=== PATIENT | female | born 1965 | race Caucasian/White ===

== ENCOUNTER → 2016-09-06 | Outpatient (CLI) | payer BC ==
[~2016-09-06] MED LIST: LANS30CA41 PO
[2016-09-06 14:42] LABS: BASO % 0.3 %; BASO ABS # 0.02 K/uL (0-0.2); COMPLETE YES; EOS % 1.1 %; HEMATOCRIT 37.8 % (37-47); IG% 0.3 %; LYMPH % 21.6 %; LYMPH ABS # 1.57 K/uL (1.2-3.4); MEAN CELL VOLUME 90.4 fL (80-100); MEAN CORPUSCULAR HEMOGLOBIN 30.6 pg (25-34); MEAN CORPUSCULAR HGB CONC 33.9 g/dl (32-36); MEAN PLATELET VOLUME 10.7 fL (7.4-10.4); MONO % 4.9 %; NEUT % 71.8 %; PLATELET COUNT 235 K/uL (130-400); RED BLOOD COUNT 4.18 M/uL (4.2-5.4); WHITE BLOOD COUNT 7.28 K/uL (4.8-10.8)
[2016-09-06 15:16] LABS: ALT/SGPT 22 U/L (12-78); AST/SGOT 15 U/L (15-37); BLOOD UREA NITROGEN 18 mg/dl (7-18); BUN/CREATININE RATIO 18.1 (10-20); CALCIUM 9.1 mg/dl (8.5-10.1); CARBON DIOXIDE 29 mmol/L (21-32); GLUCOSE 65 mg/dl (70-99)
[2016-09-06 15:51] LABS: ALB/GLOB RATIO 1.2 (0.9-2); ALKALINE PHOSPHATASE 73 U/L (45-117); CHLORIDE 107 mmol/L (98-107); POTASSIUM 3.6 mmol/L (3.5-5.1); SODIUM 144 mmol/L (136-145)
== END | disposition home or self-care (01) ==
LOC: C.CPL 12:14
PROVIDERS: ATTEND Surgery
DX: Z01.810 Encounter for preprocedural cardiovascular examination (principal)

== ENCOUNTER 2018-12-17 06:16 | Inpatient (IN) ==
--- NOTE | 2018-12-16 12:00 | History and Physical Report ---
DATE OF ADMISSION: 12/17/2018 HISTORY OF PRESENT ILLNESS: She has a spondylolisthesis significant at L4-L5 and she is here for a PLIF procedure at L4-L5 lumbar spine. She has back pain, lower extremity difficulty, paresthesias and occasional bladder issues. PAST MEDICAL HISTORY: Positive for mitral valve prolapse, asthma. No hypertension, heart disease, or diabetes. PAST SURGICAL HISTORY: x2, meniscus repair, hysterectomy, shoulder surgery. ALLERGIES: Negative. SOCIAL HISTORY: . No alcohol. Moderately active. FAMILY HISTORY: Pulmonary emboli. REVIEW OF SYSTEMS: Twelve-system review taken today. No fevers, sweats, or chills. Ear, nose and throat negative. Denies chest pain or palpitations. No wheezing. No nausea or vomiting. She has musculoskeletal joint pain, weakness, muscle pain. MEDICATION: Prevacid. PHYSICAL EXAMINATION: GENERAL: She is 5 feet 10 inches. She is 225 pounds. She is miserable, poorly functional, poorly standing. VITAL SIGNS: Blood pressure 130/80, pulse 80. Afebrile. HEENT: Pupils react to light and accommodation. Ear, nose and throat clear. CARDIAC: Normal S1, S2. No S3. LUNGS: Clear to auscultation. No rales, rhonchi, or wheezing. ABDOMEN: Soft, nontender. MUSCULOSKELETAL: She has pain with flexion and extension of the spine. Weakness with dorsiflexion of the foot. Skin is clean. No upper motor neuron issues. X-RAYS: Demonstrate a grade 1 spondylolisthesis slippage forward of the fourth vertebrae on the fifth and slightly tilting forward of fourth on fifth. IMPRESSION: Profound stenosis and spondylolisthesis L4-L5. PLAN: Includes a PLIF procedure, posterior lumbar interbody fusion L4-L5 lumbar spine. [facility]
[2018-12-17] MEDS ORDERED: SODIUM CHLORIDE 0.9% 1000ML 1,000 ML IV ONE (06:37)
[2018-12-17] MEDS ORDERED: ONDANSETRON INJ 2 MG/ML 2 ML VIAL IV STA (06:37)
[2018-12-17] MEDS ORDERED: MoRPHine SULFATE 4 MG/ML 1 ML CARP\\VIAL IV STA (06:37)
[2018-12-17 07:10] LABS: Basophils # (auto) 0.03 K/uL (0-0.2); Basophils % (auto) 0.6 %; Eosinophils # (auto) 0.12 K/uL (0-0.5); Eosinophils % (auto) 2.2 %; Hematocrit (blood only) 38.9 % (37-47); Hemoglobin 13.5 g/dL (12.0-16.0); Immature Granulocytes # (auto) 0.01 K/uL (0.00-0.02); Immature Granulocytes % (auto) 0.2 %; Lymphocytes # (auto) 1.57 K/uL (1.2-3.4); Lymphocytes % (auto) 28.9 %; Mean Corpuscular Hemoglobin 30.1 pg (25-34); Mean Corpuscular Hgb Conc 34.7 g/dL (32-36); Mean Corpuscular Volume 86.6 fL (80-100); Mean Platelet Volume 10.1 fL (7.4-10.4); Monocytes # (auto) 0.34 K/uL (0.11-0.59); Monocytes % (auto) 6.3 %; Neutrophils # (auto) 3.37 K/uL (1.4-6.5); Neutrophils % (auto) 61.8 %; Platelet Count 212 K/uL (130-400); RDW Coefficient of Variation 12.7 % (11.5-14.5); RDW Standard Deviation 40.7 fL (36.4-46.3); Red Blood Count 4.49 M/uL (4.2-5.4); White Blood Count 5.44 K/uL (4.8-10.8)
[2018-12-17 07:26] LABS: Albumin Level 3.8 gm/dl (3.4-5.0); BUN Creatinine Ratio 16.1 (10-20); Calcium 9.6 mg/dl (8.5-10.1); Creatinine Clr Calc Pharmacy 89.9 ml/min; Est GFR (African American) 80.3; Est GFR (Non-African American) 69.3; Potassium 3.9 mmol/L (3.5-5.1)
[2018-12-17 07:29] LABS: Albumin Globulin Ratio 1.3 (0.9-2); Bilirubin,Total 0.8 mg/dl (0.2-1); Globulin 2.9 gm/dl (2.5-4.0); Total Protein 6.7 gm/dl (6.4-8.2)
--- NOTE | 2018-12-17 07:46 | Emergency Department Note ---
Entered by Kendal Frederick acting as a scribe for Iron Subramanian DO History of Present Illness General Chief complaint: Back Injury/Pain Stated complaint: BACK PAIN Source: patient Mode of arrival: EMS History of Present Illness Provider complaint: Back pain Onset (ago): week(s) 1 Location: lower extremity and right Radiation: extremity (legs) Pain Consistency: + constant Maximum Pain Intensity: 10 Quality: + other (numbness) Exacerbated By: + movement Associated symptoms: + denies other symptoms The patient is a 53 y/o female with a history of obesity who presents to the emergency department for evaluation of constant lower extremity numbness and weakness that began a week ago. The patient states that she has compressed disks in her back that have been causing lower extremity weakness, numbness and incontinence a few times a day. She notes that the numbness goes down the back of her legs mostly on the right but also the left. The patient reports that she has been following with Dr. Gomez since June and he informed her to come to the emergency department this morning so he could see her. She denies any other symptoms. Home Medications Home Medications Medication Instructions Recorded Confirmed Type omeprazole 40 mg PO QAM 12/02/18 12/17/18 History hydrocodone-acetaminophen 1 tab PO Q6 PRN 12/17/18 12/17/18 History Allergies Allergy/AdvReac Type Severity Reaction Status Date / Time HARDWARE (CLIPS/PINS) Allergy Intermediate BODY Uncoded 12/17/18 08:58 "REJECTED" HARDWARE/NEEDED REMOVED Past Med/Surg History Medical History Asthma Elevated antinuclear antibody (MINDY) level GERD (gastroesophageal reflux disease) History of endometriosis History of ovarian cyst History of uterine fibroid Mitral valve prolapse Obesity Osteoarthritis Surgical History H/O shoulder surgery LEFT History of ankle surgery LEFT X 2 History of section X2 History of cholecystectomy History of colonoscopy History of esophagogastroduodenoscopy (EGD) History of hysterectomy with unilateral oophorectomy History of left knee surgery Left knee arthroscopy: 07/09/18: LMA#4 at [facility] Nausea and vomiting after administration of anesthetic agent Family History Mother Family history of diabetes mellitus Social History Preferred Language: Thai Communication Ability: Effective Stitchdown Thread Laster Required: No Beliefs That Will Affect Care: None Current Living Situation: Spouse Feels Safe at Home: Yes Smoking Status: Never smoker Second Hand Exposure: Yes ( A CHILD) ; Hx Alcohol Use: No Hx Substance Use: No Review of Systems See HPI for pertinent positives & negatives. and A total of 10 systems reviewed and were otherwise negative Physical Exam Vital Signs Vital Signs - 24 hr 12/17/18 06:19 12/17/18 07:13 12/17/18 08:07 Temperature 36.7 C Temperature Source Oral Sepsis Recent Fever Within 48 Hours No Sepsis Action Taken by Nursing No Action Required Pulse Rate 73 Pulse Rate [Apical] Pulse Rate [Finger] 74 Pulse Rhythm Regular Pulse Rhythm [Apical] Pulse Rhythm [Finger] Pulse Strength Normal Pulse Strength [Finger] Respiratory Rate 20 Respiratory Effort / Characteristics Non-Labored Spontaneous Respiratory Depth Normal Normal Respiratory Pattern Regular Blood Pressure 146/86 H Blood Pressure [Left Arm] Blood Pressure [Right Arm] 124/78 Blood Pressure Mean 106 Blood Pressure Mean [Left Arm] Blood Pressure Mean [Right Arm] 93 Blood Pressure Position Sitting Blood Pressure Position [Left Arm] Blood Pressure Position [Right Arm] Pulse Oximetry 99 95 96 Oxygen Delivery Method Room Air Room Air Room Air Oxygen Flow Rate 12/17/18 08:32 12/17/18 09:00 12/17/18 12:51 Temperature 36.8 C 36.0 C L Temperature Source Oral Temporal Artery Scan Sepsis Recent Fever Within 48 Hours Sepsis Action Taken by Nursing Pulse Rate Pulse Rate [Apical] 64 Pulse Rate [Finger] 64 Pulse Rhythm Pulse Rhythm [Apical] Regular Pulse Rhythm [Finger] Regular Pulse Strength Pulse Strength [Finger] Normal Respiratory Rate 20 13 Respiratory Effort / Characteristics Non-Labored Spontaneous Non-Labored Spontaneous Respiratory Depth Normal Normal Respiratory Pattern Regular Regular Blood Pressure Blood Pressure [Left Arm] 116/79 Blood Pressure [Right Arm] 144/85 H Blood Pressure Mean Blood Pressure Mean [Left Arm] 91 Blood Pressure Mean [Right Arm] 104 Blood Pressure Position Blood Pressure Position [Left Arm] Lying Blood Pressure Position [Right Arm] Sitting Pulse Oximetry 99 100 Oxygen Delivery Method Room Air Room Air Oxymask Oxygen Flow Rate 12/17/18 13:00 12/17/18 13:10 12/17/18 13:20 Temperature 36.3 C L Temperature Source Temporal Artery Scan Sepsis Recent Fever Within 48 Hours Sepsis Action Taken by Nursing Pulse Rate Pulse Rate [Apical] 64 62 62 Pulse Rate [Finger] Pulse Rhythm Pulse Rhythm [Apical] Regular Regular Regular Pulse Rhythm [Finger] Pulse Strength Pulse Strength [Finger] Respiratory Rate 14 14 14 Respiratory Effort / Characteristics Non-Labored Spontaneous Non-Labored Spontaneous Non-Labored Spontaneous Respiratory Depth Normal Normal Normal Respiratory Pattern Regular Regular Regular Blood Pressure Blood Pressure [Left Arm] 107/64 107/61 104/65 Blood Pressure [Right Arm] Blood Pressure Mean Blood Pressure Mean [Left Arm] 78 76 78 Blood Pressure Mean [Right Arm] Blood Pressure Position Blood Pressure Position [Left Arm] Lying Lying Lying Blood Pressure Position [Right Arm] Pulse Oximetry 100 97 100 Oxygen Delivery Method Oxymask Room Air Room Air Oxygen Flow Rate 5 GENERAL: Laying in bed, obese, disheveled, in gown. EYE EXAM: normal conjunctiva. OROPHARYNX: no exudate, no erythema, lips, buccal mucosa, and tongue normal and mucous membranes are moist NECK: supple, no nuchal rigidity, no adenopathy, non-tender LUNGS: Clear to auscultation. Normal chest wall mechanics HEART: no murmurs, S1 normal and S2 normal ABDOMEN: abdomen soft, non-tender, normo-active bowel sounds, no masses, no rebound or guarding. BACK: Back is symmetrical on inspection and there is no deformity, no midline tenderness, no CVA tenderness. SKIN: no rashes and no bruising UPPER EXTREMITIES: upper extremities are grossly normal. LOWER EXTREMITIES: No pitting edema. Weakness with flexion and extension of right hip, and knee. 4/5 as compared to left. Ankle and EHL 5 out of 5 on right unable to obtain reflexes bilaterally. NEURO EXAM: Normal sensorium, cranial nerves II-XII intact, normal speech, no weakness of arms. Course ED COURSE: Vital signs were reviewed and were hypertensive situationally The patients medical record was reviewed The above diagnostic studies were performed and reviewed. ED treatments and interventions as stated above. 0631: The patient was evaluated in room A12B. A complete history and physical examination was performed. 0718: I checked on the patient she is in MRI 0730: I spoke with Dr. Bruno-[facility] surgery, he will come evaluate the patient and likely add her to the OR schedule. 0817: Upon reevaluation, I updated the patient. .I discussed my findings with the patient and she understands and agrees with the treatment plan. Based on the patients age, coexisting illnesses, exam and lab findings the decision to treat as an inpatient was made. The patient remained stable while under my care. The patient will be evaluated for further management. Administered Medications Hydromorphone HCl (Dilaudid) 0.25 mg IV Q5M PRN PRN Reason: PACU Use Only-Pain Stop: 12/17/18 15:06 Last Admin: 12/17/18 13:15 Dose: 0.25 mg Documented by: [id number] Admin: 12/17/18 13:10 Dose: 0.25 mg Documented by: [id number] Admin: 12/17/18 13:05 Dose: 0.25 mg Documented by: [id number] Admin: 12/17/18 13:00 Dose: 0.25 mg Documented by: [id number] Ondansetron HCl (Zofran) 4 mg IV ONCE PRN PRN Reason: PACU Use Only-Nausea/Vomiting Stop: 12/17/18 15:06 Last Admin: 12/17/18 13:00 Dose: 4 mg Documented by: [id number] Discontinued Medications Acetaminophen (Ofirmev) Confirm Administered Dose 1,000 mg IV .STK-MED ONE Stop: 12/17/18 10:14 Last Admin: 12/17/18 10:17 Dose: 1,000 mg Documented by: [id number] Bacitracin (Bacitracin) Confirm Administered Dose 50,000 units .ROUTE .STK-MED ONE Stop: 12/17/18 09:54 Last Admin: 12/17/18 12:10 Dose: 50,000 units Documented by: [id number] Bupivacaine HCl/Epinephrine Bitart (Sensorcaine/Epinephrine 0.5% Mpf 1:200,000) Confirm Administered Dose 30 ml .ROUTE .STK-MED ONE Stop: 12/17/18 09:53 Last Admin: 12/17/18 12:18 Dose: 60 ml Documented by: [id number] Bupivacaine HCl/Epinephrine Bitart (Sensorcaine/Epinephrine 0.5% Mpf 1:200,000) Confirm Administered Dose 30 ml .ROUTE .STK-MED ONE Stop: 12/17/18 10:01 Last Admin: 12/17/18 12:18 Dose: Not Given Documented by: [id number] Gelatin (Surgifoam Sponge 100 (Large)) Confirm Administered Dose 1 ea .ROUTE .STK-MED ONE Stop: 12/17/18 09:54 Last Admin: 12/17/18 12:11 Dose: 1 ea Documented by: [id number] Sodium Chloride (Nss 1000ml) 1,000 mls @ 999 mls/hr IV .Q1H1M ONE Stop: 12/17/18 07:37 Last Admin: 12/17/18 07:45 Dose: 999 mls/hr Documented by: [id number] Morphine Sulfate (Morphine Sulfate) 4 mg IV NOW STA Stop: 12/17/18 06:38 Last Admin: 12/17/18 07:06 Dose: 4 mg Documented by: [id number] Ondansetron HCl (Zofran) 4 mg IV NOW STA Stop: 12/17/18 06:38 Last Admin: 12/17/18 07:06 Dose: 4 mg Documented by: [id number] Thrombin (Recothrom Kit) Confirm Administered Dose 20,000 units .ROUTE .STK-MED ONE Stop: 12/17/18 09:54 Last Admin: 12/17/18 12:19 Dose: 6,000 units Documented by: [id number] Vancomycin HCl (Vancomycin Hcl) Confirm Administered Dose 100 mg .ROUTE .STK-MED ONE Stop: 12/17/18 09:53 Last Admin: 12/17/18 12:13 Dose: 2,000 mg Documented by: [id number] Medical Decision Making Differential Diagnosis Differential considered includes cauda equina syndrome, conus medullaris, spinal cord compression syndrome, peripheral nerve compression, fractures or subluxations, intra-abdominal pathology such as abdominal aortic aneurysm or kidney stones, muscle strain, transverse myelitis, spinal cord injury. Medical Records Attestation: I reviewed the patient's medical records. Home Medications Current Medication List: was personally reviewed by me Laboratory Data Attestation: I reviewed the patient's lab results. Result diagrams: 12/17/18 07:00 12/17/18 07:00 Lab Results 12/17/18 12/17/18 12/17/18 Range/Units 07:00 07:00 07:10 WBC 5.44 (4.8-10.8) K/uL RBC 4.49 (4.2-5.4) M/uL Hgb 13.5 (12.0-16.0) g/dL Hct 38.9 (37-47) % MCV 86.6 (80-100) fL MCH 30.1 (25-34) pg MCHC 34.7 (32-36) g/dL RDW Std Deviation 40.7 (36.4-46.3) fL RDW Coeff of Cyndee 12.7 (11.5-14.5) % Plt Count 212 (130-400) K/uL MPV 10.1 (7.4-10.4) fL Immature Gran % (Auto) 0.2 % Neut % (Auto) 61.8 % Lymph % (Auto) 28.9 % [place] % (Auto) 6.3 % Eos % (Auto) 2.2 % Baso % (Auto) 0.6 % Immature Gran # (Auto) 0.01 (0.00-0.02) K/uL Neut # (Auto) 3.37 (1.4-6.5) K/uL Lymph # (Auto) 1.57 (1.2-3.4) K/uL [place] # (Auto) 0.34 (0.11-0.59) K/uL Eos # (Auto) 0.12 (0-0.5) K/uL Baso # (Auto) 0.03 (0-0.2) K/uL Sodium 141 (136-145) mmol/L Potassium 3.9 (3.5-5.1) mmol/L Chloride 108 H (98-107) mmol/L Carbon Dioxide 28 (21-32) mmol/L Anion Gap 5.0 (3-11) BUN 15 (7-18) mg/dl Creatinine 0.94 (0.6-1.2) mg/dl Est Cr Clr Drug Dosing 89.9 ml/min Est GFR ( Amer) 80.3 Est GFR (Non-Af Amer) 69.3 BUN/Creatinine Ratio 16.1 (10-20) Glucose 95 (70-99) mg/dl Calcium 9.6 (8.5-10.1) mg/dl Total Bilirubin 0.8 (0.2-1) mg/dl AST 13 L (15-37) U/L ALT 17 (12-78) U/L Alkaline Phosphatase 89 (45-117) U/L Total Protein 6.7 (6.4-8.2) gm/dl Albumin 3.8 (3.4-5.0) gm/dl Globulin 2.9 (2.5-4.0) gm/dl Albumin/Globulin Ratio 1.3 (0.9-2) Lipase 207 (73-393) U/L Urine Color Yellow Urine Appearance Clear (Clear) Urine pH 6.5 (4.5-7.5) Ur Specific Bailey 1.017 (1.000-1.030) Urine Protein Negative (Negative) Urine Glucose (UA) Negative (Negative) Urine Ketones Negative (Negative) Urine Blood Negative (Negative) Urine Nitrite Negative (Negative) Urine Bilirubin Negative (Negative) Urine Urobilinogen Negative (Negative) Ur Leukocyte Esterase 3+ H (Negative) Urine WBC (Auto) >30 H (0-5) /hpf Urine RBC (Auto) 0-4 (0-4) /hpf U Hyaline Cast (Auto) 1-5 (0-5) /lpf U Epithel Cells (Auto) >30 H (0-5) /lpf Urine Bacteria (Auto) Negative (Negative) Urine Test (Negative) 12/17/18 Range/Units 07:10 WBC (4.8-10.8) K/uL RBC (4.2-5.4) M/uL Hgb (12.0-16.0) g/dL Hct (37-47) % MCV (80-100) fL MCH (25-34) pg MCHC (32-36) g/dL RDW Std Deviation (36.4-46.3) fL RDW Coeff of Cyndee (11.5-14.5) % Plt Count (130-400) K/uL MPV (7.4-10.4) fL Immature Gran % (Auto) % Neut % (Auto) % Lymph % (Auto) % [place] % (Auto) % Eos % (Auto) % Baso % (Auto) % Immature Gran # (Auto) (0.00-0.02) K/uL Neut # (Auto) (1.4-6.5) K/uL Lymph # (Auto) (1.2-3.4) K/uL [place] # (Auto) (0.11-0.59) K/uL Eos # (Auto) (0-0.5) K/uL Baso # (Auto) (0-0.2) K/uL Sodium (136-145) mmol/L Potassium (3.5-5.1) mmol/L Chloride (98-107) mmol/L Carbon Dioxide (21-32) mmol/L Anion Gap (3-11) BUN (7-18) mg/dl Creatinine (0.6-1.2) mg/dl Est Cr Clr Drug Dosing ml/min Est GFR ( Amer) Est GFR (Non-Af Amer) BUN/Creatinine Ratio (10-20) Glucose (70-99) mg/dl Calcium (8.5-10.1) mg/dl Total Bilirubin (0.2-1) mg/dl AST (15-37) U/L ALT (12-78) U/L Alkaline Phosphatase (45-117) U/L Total Protein (6.4-8.2) gm/dl Albumin (3.4-5.0) gm/dl Globulin (2.5-4.0) gm/dl Albumin/Globulin Ratio (0.9-2) Lipase (73-393) U/L Urine Color Urine Appearance (Clear) Urine pH (4.5-7.5) Ur Specific Bailey (1.000-1.030) Urine Protein (Negative) Urine Glucose (UA) (Negative) Urine Ketones (Negative) Urine Blood (Negative) Urine Nitrite (Negative) Urine Bilirubin (Negative) Urine Urobilinogen (Negative) Ur Leukocyte Esterase (Negative) Urine WBC (Auto) (0-5) /hpf Urine RBC (Auto) (0-4) /hpf U Hyaline Cast (Auto) (0-5) /lpf U Epithel Cells (Auto) (0-5) /lpf Urine Bacteria (Auto) (Negative) Urine Test Negative (Negative) Imaging Data Radiologist's Impression: Radiology results as stated below per my review and the radiologist's interpretation: MR lumbar spine wo con CLINICAL HISTORY: 53 years-old Female with Right lower extremity weakness and incontinence. Chronic low back pain. COMPARISON: Lumbar spine MRI 11/27/2018. TECHNIQUE: Multiplanar, multi sequence MRI of the lumbar spine was performed without intravenous contrast. FINDINGS: No aortic aneurysm or adenopathy. Mild convex left curvature of the lumbar spine. Cae Engineer localizer images demonstrate no gross extraspinal abnormality. Modic type I endplate degeneration with mild endplate edema noted at L4-L5. Small bilateral facet effusions are also noted at this level with mild associated facet bone marrow and adjacent soft tissue edema. No acute fracture or subluxation. Signal within the thoracic spinal cord appears normal. Conus medullaris terminates at L1-L2. T12-L1: Mild disc space narrowing with mild facet arthrosis. No central canal or foraminal narrowing. L1-L2: Mild facet arthrosis. No central canal or foraminal narrowing. L2-L3: Mild facet arthrosis. No central canal or foraminal narrowing. L3-L4: Ligamentum flavum thickening with moderate facet arthrosis. No central canal or foraminal narrowing. L4-L5: Moderate disc space narrowing. 6 mm anterolisthesis L4 on L5 with disc space uncovering, spondylitic spurring, circumferential annular disc bulge, ligamentum flavum thickening, severe facet arthrosis with bilateral facet effusions. Severe central canal stenosis with AP dimension of the thecal sac measuring 5 mm. Severe right with mild to moderate left foraminal narrowing. L5-S1: Mild disc space narrowing with spondylitic spurring, circumferential annular disc bulge with ligamentum flavum thickening, trace facet effusions and moderate facet arthrosis. Mild central canal stenosis with moderate bilateral foraminal narrowing. IMPRESSION: 1. At L4-L5 there is grade 1 anterolisthesis, likely secondary to long-standing facet arthrosis. Modic type I endplate degeneration at this level is also noted with bone marrow and soft tissue edema about the facets, likely reactive. 2. Severe central canal with severe right and mild to moderate left foraminal stenosis at L4-L5. 3. Mild central canal with moderate bilateral foraminal narrowing at L5-S1. The above report was generated using voice recognition software. It may contain grammatical, syntax or spelling errors. Electronically signed by: Gareth Terrell M.D. 12/17/2018 9:17 AM Blood Pressure Blood Pressure Findings: Elevated blood pressure Blood Pressure Disposition: further management by hospitalist JUDIE Miner Patient is a 53-year-old female who has been following with orthopedic spine since this past June with a history of spondylolisthesis L4-L5 who has progressed to right lower extremity pain weakness and numbness in combination with saddle paresthesias and intermittent bladder incontinence over the past week. Vitals are stable. Exam does show some weakness of the right lower extremity but difficult to ascertain if this secondary to true weakness versus effort. Patient was given IV morphine, IV Zofran. Labs were obtained. MRI was ordered which showed severe stenosis in the lumbar spine. Patient was updated bedside. Patient was discussed with Dr. Bruno and evaluated in the ER and admitted and taken to the OR for severe spinal stenosis in combination with right lower extremity weakness. Impression & Plan Spinal stenosis, Paresthesia, Urinary incontinence Critical Care Time Critical Care Time: Yes Total Critical Care Time: 30 I have personally spent 30 minutes of critical care time in the direct management of this patient. This includes bedside care, interpretation of diagnostic studies, and testing, discussion with consultants, patient, and family members, and other required patient management activities. This 30 minutes is in excess of all separately billable procedures. Discharge Plan Visit Data *Final* Discharge Date/Time: 12/17/18 09:32 Chief Complaint: Back Injury/Pain Stated Complaint: BACK PAIN ED Provider: Iron Subramanian Discharge Problem: Spinal stenosis, Paresthesia, Urinary incontinence Patient Disposition: Being Evaluated by Hospitalist Discharge Instructions Interventions: ED Discharge Assessment Last Done: 12/17/18 08:32 Discharge Problem: Spinal stenosis Qualifiers: Spinal region: unspecified Qualified Code(s): M48.00 - Spinal stenosis, site unspecified Urinary incontinence Qualifiers: Urinary Incontinence type: unspecified incontinence Qualified Code(s): R32 - Unspecified urinary incontinence The scribe's documentation has been prepared under my direction and personally reviewed by me in its entirety. I confirm that the note above accurately reflects all work, treatment, procedures, and medical decision making performed by me.
[2018-12-17 08:18] LABS: Appearance Urine Clear (Clear); Bacteria Urine Automated Negative (Negative); Bilirubin Urine Negative (Negative); Blood Urine Negative (Negative); Color Urine Yellow; Epithelial Cell Urine Auto >30 /lpf (0-5); Glucose Urine UA Negative (Negative); Ketones Urine Negative (Negative); Leukocyte Esterase Urine 3+ (Negative); Nitrite Urine Negative (Negative); Protein Urine Negative (Negative); RBC Urine Automated 0-4 /hpf (0-4); Specific Gravity Urine 1.017 (1.000-1.030); Urobilinogen Urine Negative (Negative); WBC Urine Automated >30 /hpf (0-5); pH Urine 6.5 (4.5-7.5)
[2018-12-17 08:49] LABS: Pregnancy Test, Urine Negative (Negative)
--- NOTE | 2018-12-17 09:18 | Magnetic Resonance Report ---
MR lumbar spine wo con CLINICAL HISTORY: 53 years-old Female with Right lower extremity weakness and incontinence. Chronic low back pain. COMPARISON: Lumbar spine MRI 11/27/2018. TECHNIQUE: Multiplanar, multi sequence MRI of the lumbar spine was performed without intravenous cont rast. FINDINGS: No aortic aneurysm or adenopathy. Mild convex left curvature of the lumbar spine. Supervisor Yard localizer wanda ges demonstrate no gross extraspinal abnormality. Modic type I endplate degeneration with mild endpla te edema noted at L4-L5. Small bilateral facet effusions are also noted at this level with mild assoc iated facet bone marrow and adjacent soft tissue edema. No acute fracture or subluxation. Signal with in the thoracic spinal cord appears normal. Conus medullaris terminates at L1-L2. T12-L1: Mild disc space narrowing with mild facet arthrosis. No central canal or foraminal narrowing . L1-L2: Mild facet arthrosis. No central canal or foraminal narrowing. L2-L3: Mild facet arthrosis. No central canal or foraminal narrowing. L3-L4: Ligamentum flavum thickening with moderate facet arthrosis. No central canal or foraminal bennie rowing. L4-L5: Moderate disc space narrowing. 6 mm anterolisthesis L4 on L5 with disc space uncovering, spon dylitic spurring, circumferential annular disc bulge, ligamentum flavum thickening, severe facet arth rosis with bilateral facet effusions. Severe central canal stenosis with AP dimension of the thecal s ac measuring 5 mm. Severe right with mild to moderate left foraminal narrowing. L5-S1: Mild disc space narrowing with spondylitic spurring, circumferential annular disc bulge with ligamentum flavum thickening, trace facet effusions and moderate facet arthrosis. Mild central canal stenosis with moderate bilateral foraminal narrowing. IMPRESSION: 1. At L4-L5 there is grade 1 anterolisthesis, likely secondary to long-standing facet arthrosis. Antonio c type I endplate degeneration at this level is also noted with bone marrow and soft tissue edema abo ut the facets, likely reactive. 2. Severe central canal with severe right and mild to moderate left foraminal stenosis at L4-L5. 3. Mild central canal with moderate bilateral foraminal narrowing at L5-S1. The above report was generated using voice recognition software. It may contain grammatical, syntax o r spelling errors. Electronically signed by: Gareth Terrell M.D. 12/17/2018 9:17 AM
[2018-12-17] MEDS ORDERED: BUPIVACAINE/EPINEPHRINE 0.5% MPF 1:200,000 30 ML VIAL ONE ×2 (09:52→10:00)
[2018-12-17] MEDS ORDERED: VANCOMYCIN HCL 1000MG/20ML VIAL ONE (09:52)
[2018-12-17] MEDS ORDERED: THROMBIN FOR SOLN 20000 UNIT KIT ONE (09:53)
[2018-12-17] MEDS ORDERED: GELATIN SPONGE SZ 100 ONE (09:53)
[2018-12-17] MEDS ORDERED: BACITRACIN INJ 50,000 UNIT VIAL ONE (09:53)
[2018-12-17] MEDS ORDERED: CEFAZOLIN 2000MG 2,000 MG/15 ML SYR IV ONE (10:00)
[2018-12-17] MEDS ORDERED: LABETALOL HCL IV 5 MG/ML 20ML IV PRN (10:06)
[2018-12-17] MEDS ORDERED: ONDANSETRON INJ 2 MG/ML 2 ML VIAL IV PRN (10:06)
[2018-12-17] MEDS ORDERED: FLUMAZENIL 0.1 MG/1 ML 10 ML VIAL IV PRN (10:06)
[2018-12-17] MEDS ORDERED: NALOXONE HCL 0.4 MG/1 ML VIAL/CARP IV PRN ×2 (10:06→14:12)
[2018-12-17] MEDS ORDERED: PROMETHAZINE HCL 12.5 MG in SODIUM CHLORIDE 0.9% 50 ML IV PRN (10:06)
[2018-12-17] MEDS ORDERED: ePHEDrine sulfate 50 MG/ML AMP IV PRN (10:06)
[2018-12-17] MEDS ORDERED: ATROPINE SULFATE 0.1 MG/ML 10ML SYR IV PRN (10:06)
[2018-12-17] MEDS ORDERED: ACETAMINOPHEN 1000 MG/100 ML IV IV ONE (10:13)
--- NOTE | 2018-12-17 10:19 | History & Physical Bridge Note ---
Date of Service December 17, 2018 History & Physical Bridge Note I have examined the patient, reviewed the History & Physical and in the interval since the performance of the History & Physical I have noted the following changes of clinical significance: no changes noted
--- NOTE | 2018-12-17 10:23 | History & Physical Bridge Note ---
Date of Service December 17, 2018 History & Physical Bridge Note I have examined the patient, reviewed the History & Physical and in the interval since the performance of the History & Physical I have noted the following changes of clinical significance: Patient has developed a cauda equina syndrome and needs emergency surgery
--- NOTE | 2018-12-17 12:43 | Post Operative Brief Note ---
PG Immediate Post Op with CF Date of Surgery December 17, 2018 Pre & Post Diagnosis Operation Date: 12/17/18 07:50 Pre-Op Diagnosis: Profound stenosis and spondylolisthesis L4-L5 Post-Op Diagnosis: Profound stenosis and spondylolisthesis L4-L5 Procedure Operation Date: 12/17/18 07:50 Actual Procedures p L4-L5 Posterior Lumbar Interbody Fusion(Not Applicable) - Tino Gomez DO Surgeon Tino Gomez DO Laboratory Assistant mainor Estimated Blood Loss 200 Findings Consistent with Post-Op Diagnosis Drains Jeter Catheter and Hemovac Drain
[2018-12-17] MEDS: HYDROmorphone INJ 1 MG/ML SYRINGE IV PRN ×4 (13:00→13:15)
--- NOTE | 2018-12-17 13:29 | Anesthesiology Progress Note ---
Date of Service December 17, 2018 Anesthesia Post Procedure Vital Signs Vital Signs: Temp Pulse Pulse Pulse Resp BP BP 12/17/18 13:20 36.3 C L 62 14 104/65 12/17/18 13:10 62 14 107/61 12/17/18 13:00 64 14 107/64 12/17/18 12:51 36.0 C L 64 13 116/79 12/17/18 09:00 36.8 C 64 20 12/17/18 08:07 74 12/17/18 07:13 12/17/18 06:19 36.7 C 73 20 146/86 H BP Pulse Ox 12/17/18 13:20 100 12/17/18 13:10 97 12/17/18 13:00 100 12/17/18 12:51 100 12/17/18 09:00 144/85 H 99 12/17/18 08:07 124/78 96 12/17/18 07:13 95 12/17/18 06:19 99 Pain Intensity Bilateral Back: Pain Intensity: 6 Transfer of Care Handoff Completed per policy Notes Mental Status: alert / awake / arousable Patient Amnestic to Procedure: Yes Nausea / Vomiting: adequately controlled Pain: adequately controlled Airway Patency, RR, SpO2: stable & adequate BP & HR: stable & adequate Hydration State: stable & adequate Anesthetic Complications: no major complications apparent
[2018-12-17] MEDS ORDERED: DO NOT ADMINISTER FLU VACCINE PRN (14:12)
[2018-12-17] MEDS ORDERED: DO NOT ADMINISTER PNEUMOCOCCAL VACCINE PRN (14:12)
[2018-12-17] MEDS ORDERED: ONDANSETRON 4 MG TAB PO PRN (14:12)
[2018-12-17] MEDS ORDERED: BISACODYL 10 MG SUPP PR PRN (14:12)
[2018-12-17] MEDS: OXYCODONE HCL IR 5 MG TAB (IMMEDIATE RELEASE) PO PRN ×2 (14:49→18:22)
[2018-12-17] MEDS ORDERED: LACTATED RINGER'S 1,000 ML IV SCH (15:00)
[2018-12-17] MEDS ORDERED: SODIUM CHLORIDE 0.9% 1000ML 1,000 ML IV SCH (15:00)
--- NOTE | 2018-12-17 15:29 | Operative Report ---
DATE OF OPERATION: 12/17/2018 PREOPERATIVE DIAGNOSES: Cauda equina syndrome with a grade 1, almost grade 2 spondylolisthesis; severe spinal stenosis at L4-L5, lumbar spine. POSTOPERATIVE DIAGNOSES: Cauda equina syndrome with a grade 1, almost grade 2 spondylolisthesis; severe spinal stenosis at L4-L5, lumbar spine. PROCEDURES: 1. Laminectomy of L4 and L5, lumbar spine, single level decompression, foraminotomy, partial facetectomy, essentially full facetectomy of the L4-L5 area. 2. Pedicle screw instrumentation L4 and L5. 3. Posterior lumbar interbody fusion L4-L5. 4. Posterolateral fusion L4-L5. SURGEON: Tino Gomez DO. MONORAIL OPERATOR: Syed Granda PA-C. BLOOD LOSS: 200 mL. COMPLICATIONS: Zero. DESCRIPTION OF PROCEDURE: The patient was identified in the preop holding area. A bridge note provided, brought back to the operating room and general intubated anesthetic provided to the patient, placed prone, scrubbed, prepped and draped sterile. We made a skin incision, fascial incision. We came down to L4-L5 interval. We put in deep self-retaining retractor and had perfect visibility. We decompressed the neural elements. She has profound stenosis at L4-L5. We took off the facets of the lamina using the bone, which is autograft for bone graft in the future. We then instrumented the spine. I safely got pedicle screws into 4 and 5 bilaterally. We then did a posterior lumbar interbody fusion, first discectomy, complete, bilateral. We used kristin up to 10 mm. We selected interbody device. It was 10 mm in height, 8 wide, 22 long. We put 2 interbody spacers in the interval. We then locked down the construct in compression. Final x-rays were obtained. I was pleased with the reduction and position. We closed over vancomycin powder with 1 Vicryl, 2-0 and 3-0 nylon on the skin. Prior to closure, we did bone graft out of the transverse processes from L4-L5 completing the 360 fusion. Sterile dressings applied. The patient returned to PACU in stable and improved condition. Instrument and implants used by the [employer]. Bone was autograft and demineralized bone matrix. Sponge and needle count correct. No apparent complications. I attest to the content of the Intraoperative Record and any orders documented therein. Any exception s are noted below.
[2018-12-17] MEDS: ACETAMINOPHEN 1,000 MG/100 ML VIAL IV PRN (18:04)
[2018-12-17] MEDS: CEFAZOLIN 2000MG 2,000 MG/15 ML SYR IV SCH ×2 (18:07→23:42)
[2018-12-17] MEDS: ONDANSETRON INJ 2 MG/ML 2 ML VIAL IV PRN (18:23)
[2018-12-17] MEDS: DOCUSATE SODIUM/SENNA 50/8.6MG TAB PO SCH (20:51)
[2018-12-17] MEDS: PANTOprazole 40 MG TAB PO SCH (21:28)
[2018-12-17] MEDS: HYDROmorphone INJ 0.5 MG/0.5 ML SYR IV PRN (21:28)
[2018-12-18] MEDS: HYDROmorphone INJ 0.5 MG/0.5 ML SYR IV PRN ×3 (03:27→19:15)
[2018-12-18] MEDS: POLYETHYLENE (MIRALAX) 17 GM PACK PO SCH ×3 (05:25→19:14)
[2018-12-18 05:47] LABS: Basophils # (auto) 0.01 K/uL (0-0.2); Basophils % (auto) 0.1 %; Eosinophils # (auto) 0.02 K/uL (0-0.5); Eosinophils % (auto) 0.2 %; Hematocrit (blood only) 32.7 % (37-47); Immature Granulocytes # (auto) 0.02 K/uL (0.00-0.02); Immature Granulocytes % (auto) 0.2 %; Lymphocytes # (auto) 1.46 K/uL (1.2-3.4); Lymphocytes % (auto) 17.4 %; Mean Corpuscular Hemoglobin 29.4 pg (25-34); Mean Corpuscular Hgb Conc 33.6 g/dL (32-36); Mean Corpuscular Volume 87.4 fL (80-100); Neutrophils # (auto) 6.38 K/uL (1.4-6.5); Neutrophils % (auto) 76.1 %; Platelet Count 190 K/uL (130-400); RDW Coefficient of Variation 12.9 % (11.5-14.5); RDW Standard Deviation 41.9 fL (36.4-46.3); Red Blood Count 3.74 M/uL (4.2-5.4); White Blood Count 8.39 K/uL (4.8-10.8)
[2018-12-18] MEDS ORDERED: CEFAZOLIN 2000MG 2,000 MG/15 ML SYR IV SCH (06:00)
[2018-12-18 06:20] LABS: BUN Creatinine Ratio 12.4 (10-20); Calcium 8.4 mg/dl (8.5-10.1); Creatinine Clr Calc Pharmacy 90.9 ml/min; Est GFR (African American) 81.3; Est GFR (Non-African American) 70.2; Potassium 3.7 mmol/L (3.5-5.1)
[2018-12-18] MEDS: OXYCODONE HCL IR 5 MG TAB (IMMEDIATE RELEASE) PO PRN (07:57)
[2018-12-18] MEDS: PANTOprazole 40 MG TAB PO SCH (09:55)
[2018-12-18] MEDS: ONDANSETRON INJ 2 MG/ML 2 ML VIAL IV PRN ×2 (13:19→19:19)
[2018-12-18] MEDS: DOCUSATE SODIUM/SENNA 50/8.6MG TAB PO SCH (20:12)
[2018-12-18] MEDS: ACETAMINOPHEN 1,000 MG/100 ML VIAL IV PRN (21:05)
[2018-12-19] MEDS: POLYETHYLENE (MIRALAX) 17 GM PACK PO SCH ×5 (00:05→23:57)
[2018-12-19] MEDS: OXYCODONE HCL IR 5 MG TAB (IMMEDIATE RELEASE) PO PRN ×5 (00:05→17:40)
[2018-12-19] MEDS: MAGNESIUM HYDROXIDE SUSP 30 ML UDC PO PRN (05:15)
[2018-12-19] MEDS: ONDANSETRON INJ 2 MG/ML 2 ML VIAL IV PRN (07:48)
[2018-12-19] MEDS: PANTOprazole 40 MG TAB PO SCH (08:40)
[2018-12-19] MEDS: DOCUSATE SODIUM/SENNA 50/8.6MG TAB PO SCH ×2 (20:19→20:23)
[2018-12-20] MEDS: OXYCODONE HCL IR 5 MG TAB (IMMEDIATE RELEASE) PO PRN ×4 (00:04→13:49)
[2018-12-20] MEDS: MAGNESIUM HYDROXIDE SUSP 30 ML UDC PO PRN (05:16)
[2018-12-20] MEDS: POLYETHYLENE (MIRALAX) 17 GM PACK PO SCH ×2 (05:16→12:02)
[2018-12-20] MEDS: PANTOprazole 40 MG TAB PO SCH (08:19)
--- NOTE | 2018-12-22 08:03 | Discharge Summary ---
SUBJECTIVE: She is alert, oriented, moderate but appropriate type of pain, no chest pain or shortness of breath. OBJECTIVE: Vital signs stable, blood pressure 112/69, pulse 70. Alert, oriented, moves all extremities. ASSESSMENT: Status post reconstructive spine surgery, fusion, reduction of spondylolisthesis for a cauda equina syndrome. PLAN: We will discharge her home to bed rest here today. Slight walks. She has medications on her chart. She has a prescription for a walker with wheels. She will be discharged home in improved stable condition. ADDENDUM I discharged Henry yesterday 12/19/2018. She did need one extra stay. She was feeling lethargic, had some discomfort, did not pass physical therapy, although no shortness of breath. This morning, she is improved, stable, voices a desire to go home. The extra 24 hours helped her immensely. She will be discharged home in improved stable condition. Follow up in the office in approximately 12 days. She has prescriptions on her chart. MEJIA
== END 2018-12-20 14:11 | disposition home or self-care (01) | DRG 454 ==
LOC: ED 06:16 → OR 08:32 → 3E 12:56